=== PATIENT | male | born 1955 | race Caucasian/White ===

== ENCOUNTER → 2020-05-21 | Outpatient (CLI) | payer OTHER | END | disposition home or self-care (01) | LOC: CVU 06:39 | PROVIDERS: ATTEND Internal Medicine Cardiovascular Disease | DX: I35.8 Other nonrheumatic aortic valve disorders (principal); I25.10 Atherosclerotic heart disease of native coronary artery without angina pectoris; R06.02 Shortness of breath | CPT/HCPCS: 78452; 93017; 93306; 93356; A9502 ==